=== PATIENT | female | born 1980 | race American Indian/Alaskan Native ===

== ENCOUNTER 2019-10-20 17:36 | Emergency (ER) | payer MEDICAID ==
[2019-10-20 17:47] VITALS: BP 139/76
== END 2019-10-20 21:45 | disposition left against medical advice (07) ==
LOC: ED 17:36
DX: N93.9 Abnormal uterine and vaginal bleeding, unspecified (principal); Z53.21 Procedure and treatment not carried out due to patient leaving prior to being seen by health care provider

== ENCOUNTER 2020-11-02 20:12 | Emergency (ER) | payer MEDICAID | END 2020-11-02 20:30 | disposition left against medical advice (07) | LOC: ED 20:12 | DX: Z00.8 Encounter for other general examination (principal); Z53.21 Procedure and treatment not carried out due to patient leaving prior to being seen by health care provider ==

== ENCOUNTER 2021-04-12 19:41 | Emergency (ER) | payer MEDICAID ==
[2021-04-12] MEDS ORDERED: ACETAMINOPHEN 500 MG TAB PO ONE (21:39)
[2021-04-12] MEDS ORDERED: ASPIRIN 325 MG TAB PO ONE (21:39)
[2021-04-12] MEDS ORDERED: diazePAM 5 MG TAB PO ONE (21:39)
[2021-04-12 22:08] LABS: Basophils % (Auto) 0.3 % (0.0-1.8); Eosinophils % (Auto) 0.1 % (0.0-4.3); Hematocrit 35.4 % (30.3-42.9); Hemoglobin 11.5 gm/dl (10.1-14.3); Lymphocytes # (Auto) 2.4 K/mm3 (1.2-5.4); Lymphocytes % (Auto) 31.5 % (13.4-35.0); Mean Corpuscular HGB Conc 33 % (30-34); Mean Corpuscular Volume 92 fl (79-97); Monocytes # (Auto) 0.5 K/mm3 (0.0-0.8); Platelet Count 367 K/mm3 (140-440); Red Blood Count 3.83 M/mm3 (3.65-5.03); Red Cell Distribution Width 13.8 % (13.2-15.2)
[2021-04-12 22:38] LABS: Alanine Aminotransferase 22 units/L (7-56); Albumin 4.4 g/dL (3.9-5); BUN/Creatinine Ratio 13; Blood Urea Nitrogen 10 mg/dL (7-17); Calcium 9.3 mg/dL (8.4-10.2); Hemolysis Index 27
--- NOTE | 2021-04-12 22:44 | XRay Report ---
CHEST 1 VIEW INDICATION / CLINICAL INFORMATION: chest pain. COMPARISON: None available. FINDINGS: SUPPORT DEVICES: None. HEART / MEDIASTINUM: No significant abnormality. LUNGS / PLEURA: No significant pulmonary or pleural abnormality. No pneumothorax. ADDITIONAL FINDINGS: No significant additional findings. IMPRESSION: 1. No acute findings. Signer Name: Sherri Reno MD Signed: 04/12/2021 10:40 PM Workstation Name: [id number]
--- NOTE | 2021-04-12 23:21 | Emergency Department Report ---
ED General Adult HPI - General Chief complaint: Anxiety Stated complaint: anxiety PUI?: No Source: EMS Mode of arrival: Ambulatory Limitations: No Limitations - History of Present Illness Initial comments: Patient is a 40-year-old -[place]ian female with a history of anxiety and depression who presented to the ED with complaint of acute onset persistent left-sided chest pain that has been constant and persistent for the last 3 days, worse in the last 8 hours. Patient also complains of shortness of breath but attributes this to her chronic anxiety that she previously took Ativan for. Patient states that she has an appointment with her primary care physician in 3 days and wanted to be evaluated because of persistent left-sided chest pain. Patient also states that her job also entails heavy lifting and she was unsure as to whether the pain in her chest may be attributed to the heavy lifting at work. Patient denies dizziness, syncope, abdominal pain, palpitations, nausea and vomiting, neck pain, traumatic injury, fall, headache, change in vision, diaphoresis, fever and chills or back pain. -: Sudden, days(s) (2) Location: chest Radiation: non-radiation Severity scale (0 -10): 4 Quality: aching, sharp Consistency: constant Improves with: none Worsens with: movement Associated Symptoms: denies other symptoms, chest pain (Left-sided chest pain), other (Anxiety). denies: confusion, cough, diaphoresis, fever/chills, headaches, loss of appetite, malaise, nausea/vomiting, seizure, shortness of breath, syncope, weakness Treatments Prior to Arrival: none - Related Data Previous Rx's Medication Instructions Recorded Last Taken Type Ciprofloxacin HCl [Ciprofloxacin 500 mg PO Q12H #20 tab 05/30/16 Unknown Rx TAB] HYDROcodone/APAP 5-325 [[place] 1 each PO Q6HR PRN #20 tablet 05/30/16 Unknown Rx 5/325] metroNIDAZOLE [Flagyl] 500 mg PO Q8HR #30 tablet 05/30/16 Unknown Rx Cyclobenzaprine [Flexeril] 10 mg PO TID PRN #15 tablet 04/12/21 Unknown Rx Naproxen 500 mg PO Q12H PRN #30 tablet 04/12/21 Unknown Rx hydrOXYzine PAMOATE [Vistaril] 50 mg PO Q12HR PRN #60 capsule 04/12/21 Unknown Rx Allergies Allergy/AdvReac Type Severity Reaction Status Date / Time No Known Allergies Allergy Verified 10/20/19 17:37 ED Review of Systems ROS: Stated complaint: anxiety Other details as noted in HPI Constitutional: denies: chills, fever Eyes: denies: eye pain, eye discharge, vision change ENT: denies: ear pain, throat pain Respiratory: denies: cough, shortness of breath, wheezing Cardiovascular: chest pain (Left-sided chest pain). denies: palpitations Endocrine: no symptoms reported Gastrointestinal: denies: abdominal pain, nausea, vomiting, diarrhea Genitourinary: denies: urgency, dysuria, discharge Musculoskeletal: denies: back pain, joint swelling, arthralgia Skin: denies: rash, lesions Neurological: denies: headache, weakness, paresthesias Psychiatric: anxiety. denies: depression, auditory hallucinations, visual hallucinations, suicidal thoughts Hematological/Lymphatic: denies: easy bleeding, easy bruising ED Past Medical Hx - Past Medical History Hx Hypertension: No Hx Congestive Heart Failure: No Hx Diabetes: No Hx Deep Vein Thrombosis: No Hx Renal Disease: No Hx Sickle Cell Disease: No Hx Seizures: No Hx Psychiatric Treatment: Yes (Anxiety and depression) Hx Asthma: No Hx COPD: No Hx HIV: No - Social History Smoking Status: Never Smoker Substance Use Type: None - Medications Home Medications: Home Medications Medication Instructions Recorded Confirmed Last Taken Type Ciprofloxacin HCl [Ciprofloxacin 500 mg PO Q12H #20 tab 05/30/16 Unknown Rx TAB] HYDROcodone/APAP 5-325 [[place] 1 each PO Q6HR PRN #20 tablet 05/30/16 Unknown Rx 5/325] metroNIDAZOLE [Flagyl] 500 mg PO Q8HR #30 tablet 05/30/16 Unknown Rx Cyclobenzaprine [Flexeril] 10 mg PO TID PRN #15 tablet 04/12/21 Unknown Rx Naproxen 500 mg PO Q12H PRN #30 tablet 04/12/21 Unknown Rx hydrOXYzine PAMOATE [Vistaril] 50 mg PO Q12HR PRN #60 capsule 04/12/21 Unknown Rx ED Physical Exam - General Limitations: No Limitations General appearance: alert, in no apparent distress - Head Head exam: Present: atraumatic, normocephalic, normal inspection - Eye Eye exam: Present: normal appearance, PERRL, EOMI - ENT ENT exam: Present: normal exam, normal orophraynx, mucous membranes moist, TM's normal bilaterally, normal external ear exam - Neck Neck exam: Present: normal inspection, full ROM - Respiratory Respiratory exam: Present: normal lung sounds bilaterally, chest wall tenderness (Palpable reproducible left-sided chest wall tenderness). Absent: respiratory distress, wheezes, rales, rhonchi, accessory muscle use, decreased breath sounds, prolonged expiratory - Cardiovascular Cardiovascular Exam: Present: regular rate, normal rhythm, normal heart sounds. Absent: systolic murmur, diastolic murmur, rubs, gallop - GI/Abdominal GI/Abdominal exam: Present: soft, normal bowel sounds. Absent: tenderness, guarding, rebound, hyperactive bowel sounds, hypoactive bowel sounds, mass - Extremities Exam Extremities exam: Present: normal inspection, full ROM, normal capillary refill - Back Exam Back exam: Present: normal inspection, full ROM. Absent: tenderness, CVA tenderness (R), CVA tenderness (L), muscle spasm, vertebral tenderness - Neurological Exam Neurological exam: Present: alert, oriented X3, CN II-XII intact, normal gait, reflexes normal - Psychiatric Psychiatric exam: Present: depressed, anxious, flat affect. Absent: homicidal ideation, suicidal ideation - Skin Skin exam: Present: warm, dry, intact, normal color. Absent: rash ED Course Vital Signs 04/12/21 19:42 Temperature 98.9 F Pulse Rate 88 Respiratory 20 Rate Blood Pressure 154/92 [Right] O2 Sat by Pulse 99 Oximetry ED Medical Decision Making - Lab Data Result diagrams: 04/12/21 21:43 04/12/21 21:43 - Radiology Data Radiology results: report reviewed, image reviewed [address] [address] XRay Report Signed Patient: VITO OLIVER MR#: [id number] : 1980 Acct:[id number] Age/Sex: 40 / F ADM Date: 04/12/21 Loc: ED Attending Dr: Ordering Physician: JIMMY WHITE Date of Service: 04/12/21 Procedure(s): XR chest 1V ap Accession Number(s): [id number] cc: JIMMY WHITE Fluoro Time In Minutes: CHEST 1 VIEW INDICATION / CLINICAL INFORMATION: chest pain. COMPARISON: None available. FINDINGS: SUPPORT DEVICES: None. HEART / MEDIASTINUM: No significant abnormality. LUNGS / PLEURA: No significant pulmonary or pleural abnormality. No pneumothorax. ADDITIONAL FINDINGS: No significant additional findings. IMPRESSION: 1. No acute findings. Signer Name: Sherri Reno MD Signed: 04/12/2021 10:40 PM Workstation Name: [id number] Transcribed By: JR Dictated By: Sherri Reno MD Electronically Authenticated By: Sherri Reno MD Signed Date/Time: 04/12/212239 DD/ 38 TD/TT: - Medical Decision Making This is a 40-year-old -[place]ian female with a history of anxiety and depression who presented to the ED with complaint of acute onset persistent left-sided chest pain that has been constant and persistent for the last 3 days, worse in the last 8 hours. Patient also complains of shortness of breath but attributes this to her chronic anxiety that she previously took Ativan for. Patient states that she has an appointment with her primary care physician in 3 days and wanted to be evaluated because of persistent left-sided chest pain. Patient also states that her job also entails heavy lifting and she was unsure as to whether the pain in her chest may be attributed to the heavy lifting at work. In the ED, patient is alert and oriented x3 and is not in distress. Patient however appears to be anxious due to her chronic anxiety and depression after losing her 14-year-old son about 4 months ago. Chest x-ray showed no acute cardiopulmonary abnormalities or pneumonitis. Patient was treated in the ED for pain and also treated for anxiety in the ED. Lab test results were reviewed and are all nonactionable including troponin levels. Patient's heart score is 0 and patient is PERC negative per Wells criteria. Patient was therefore discharged home on pain medications and anxiety medications and advised to follow-up with her primary care physician as previously scheduled in 3 days time. Patient was otherwise advised return to the ED immediately if symptoms get worse. - Differential Diagnosis ACS; anxiety; pneumonia; muscle strain; costochondritis; PE Critical care attestation.: If time is entered above; I have spent that time in minutes in the direct care of this critically ill patient, excluding procedure time. ED Disposition Clinical Impression: Acute nonspecific chest pain with low risk of coronary artery disease, Anxiety associated with depression, Anxiety as acute reaction to exceptional stress, Acute costochondritis Disposition: 01 HOME / SELF CARE / HOMELESS Is pt being admited?: No Does the pt Need Aspirin: No Condition: Stable Instructions: Chest Pain (ED), Costochondritis, [id number], Nonspecific Chest Pain, Adult, [id number], Generalized Anxiety Disorder, Adult, Chest Wall Pain, [id number] Additional Instructions: All lab test results were reviewed and are all nonactionable. Chest x-ray showe d no acute cardiopulmonary abnormalities or pneumonitis. Therefore your symptoms are likely due to anxiety, or heavy lifting at work causing the chest wall pain. Therefore take medication with food, drink plenty of fluids and follow-up with your primary care physician in 7 to 10 days for reevaluation. Return to the ED immediately if symptoms get worse. Prescriptions: Cyclobenzaprine [Flexeril] 10 mg PO TID PRN #15 tablet PRN Reason: Muscle Spasm Naproxen 500 mg PO Q12H PRN #30 tablet PRN Reason: Pain , Severe (7-10) hydrOXYzine PAMOATE [Vistaril] 50 mg PO Q12HR PRN #60 capsule PRN Reason: Anxiety Referrals: [facility] [Provider Group] - 7-10 days Forms: Work/School Release Form(ED) Time of Disposition: 23:23 Print Language: PORTUGUESE
[2021-04-13 00:45] VITALS: BP 142/85
--- NOTE | 2021-04-13 12:17 | Electrocardiograph Report ---
[facility] Test Date: 2021-04-12 Test Time: 19:57:21 Pat Name: VITO OLIVER Department: Room: Gender: F Environmental Scientist: : 1980 Requested By: ACE PEREZ Order Number: [id number] Reading MD: Will Lyle Measurements Intervals [place] Rate: 74 P: 0 MI: 67 QRS: 25 QRSD: 86 T: 8 QT: 377 QTc: 418 Interpretive Statements Sinus rhythm No previous ECG available for comparison Electronically Signed On 04-13-2021 12:16:55 EST by Will Lyle
== END 2021-04-13 00:25 | disposition home or self-care (01) ==
LOC: ED 19:41
DX: M94.0 Chondrocostal junction syndrome [Tietze] (principal); F41.9 Anxiety disorder, unspecified; F32.9 Major depressive disorder, single episode, unspecified; Z79.899 Other long term (current) drug therapy
CPT/HCPCS: 36415; 71045; 80053; 84443; 84484; 84703; 85025; 93005; 99284

== ENCOUNTER 2021-05-20 04:52 | Emergency (ER) | payer MEDICAID ==
--- NOTE | 2021-05-20 05:31 | Event Note ---
ED Screening Note ED Screening Note: Patient presents for left-sided chest pain that exacerbated yesterday states that she has been having difficulty sleeping Patient states that she has been having intermittent chest pain since losing her son in January Reports that her doctor started her on lisinopril for her blood pressure and started her on lorazepam for anxiety She states that she does not like how the lorazepam makes her feel She reports that she also started a workers' compensation claims examiner and had an echocardiogram and is awaiting her results She states that her workers' compensation claims examiner wrote her prescription for bisoprolol but she has not yet started taking it She has not tried any [id number] sleep aids such as melatonin, ZzzQuil, Unisom No allergies to medications This initial assessment/diagnostic orders/clinical plan/treatment(s) is/are subject to change based on patients health status, clinical progression and re- assessment by fellow clinical providers in the ED. Further treatment and workup at subsequent clinical providers discretion. Patient/guardian urged not to elope from the ED as their condition may be serious if not clinically assessed and managed. Initial orders include: Labs, EKG, x-ray
[2021-05-20 06:10] LABS: Basophils % (Auto) 0.3 % (0.0-1.8); Eosinophils % (Auto) 0.5 % (0.0-4.3); Hematocrit 33.3 % (30.3-42.9); Hemoglobin 11.1 gm/dl (10.1-14.3); Lymphocytes # (Auto) 1.8 K/mm3 (1.2-5.4); Lymphocytes % (Auto) 33.3 % (13.4-35.0); Mean Corpuscular HGB Conc 33 % (30-34); Mean Corpuscular Volume 91 fl (79-97); Monocytes # (Auto) 0.5 K/mm3 (0.0-0.8); Monocytes % (Auto) 8.2 % (0.0-7.3); Platelet Count 304 K/mm3 (140-440); Red Blood Count 3.65 M/mm3 (3.65-5.03); Red Cell Distribution Width 13.7 % (13.2-15.2)
--- NOTE | 2021-05-20 06:19 | Emergency Department Report ---
ED General Adult HPI - General Chief complaint: Chest Pain Stated complaint: CHEST PAIN Time Seen by Provider: 05/20/21 06:01 Source: patient Mode of arrival: Ambulatory Limitations: No Limitations - History of Present Illness Initial comments: Patient presents secondary to chest pain. For months she has been having problems with intermittent left chest pain. This is described as an aching sensation in the left chest and under the left breast. The symptoms do not radiate or migrate. She states that this seems to be worse when her anxiety is up. She lost her son and she started having chest pain subsequent to that. She has been seen by her regular doctor. They have started her on anxiety medicine which does not seem to help. She has been seen by cardiology. Echocardiogram was completed, but the patient states that she does not have that result. Regardless, she does not have any associated symptoms with this. The symptoms do not seem to be exertional, positional, or pleuritic. She came in today because of the discomfort. She has noticed that sometimes she has the symptoms even when she does not "feel anxious." - Related Data Previous Rx's Medication Instructions Recorded Last Taken Type Ciprofloxacin HCl [Ciprofloxacin 500 mg PO Q12H #20 tab 05/30/16 Unknown Rx TAB] HYDROcodone/APAP 5-325 [[place] 1 each PO Q6HR PRN #20 tablet 05/30/16 Unknown Rx 5/325] metroNIDAZOLE [Flagyl] 500 mg PO Q8HR #30 tablet 05/30/16 Unknown Rx Cyclobenzaprine [Flexeril] 10 mg PO TID PRN #15 tablet 04/12/21 Unknown Rx Naproxen 500 mg PO Q12H PRN #30 tablet 04/12/21 Unknown Rx hydrOXYzine PAMOATE [Vistaril] 50 mg PO Q12HR PRN #60 capsule 04/12/21 Unknown Rx Allergies Allergy/AdvReac Type Severity Reaction Status Date / Time No Known Allergies Allergy Verified 10/20/19 17:37 ED Review of Systems ROS: Stated complaint: CHEST PAIN Other details as noted in HPI Comment: All other systems reviewed and negative Constitutional: denies: fever Eyes: denies: vision change ENT: denies: throat pain Respiratory: denies: cough Cardiovascular: as per HPI Endocrine: denies: unexplained weight loss Gastrointestinal: denies: abdominal pain Genitourinary: denies: dysuria Musculoskeletal: denies: back pain Skin: denies: rash Neurological: denies: headache Psychiatric: as per HPI Hematological/Lymphatic: denies: easy bruising ED Past Medical Hx - Past Medical History Previous Medical History?: Yes Hx Hypertension: No Hx Congestive Heart Failure: No Hx Diabetes: No Hx Deep Vein Thrombosis: No Hx Renal Disease: No Hx Sickle Cell Disease: No Hx Seizures: No Hx Psychiatric Treatment: Yes (Anxiety and depression) Hx Asthma: No Hx COPD: No Hx HIV: No - Surgical History Past Surgical History?: No - Family History Family history: other (Negative for heart disease) - Social History Smoking Status: Never Smoker Substance Use Type: None - Medications Home Medications: Home Medications Medication Instructions Recorded Confirmed Last Taken Type Ciprofloxacin HCl [Ciprofloxacin 500 mg PO Q12H #20 tab 05/30/16 Unknown Rx TAB] HYDROcodone/APAP 5-325 [[place] 1 each PO Q6HR PRN #20 tablet 05/30/16 Unknown Rx 5/325] metroNIDAZOLE [Flagyl] 500 mg PO Q8HR #30 tablet 05/30/16 Unknown Rx Cyclobenzaprine [Flexeril] 10 mg PO TID PRN #15 tablet 04/12/21 Unknown Rx Naproxen 500 mg PO Q12H PRN #30 tablet 04/12/21 Unknown Rx hydrOXYzine PAMOATE [Vistaril] 50 mg PO Q12HR PRN #60 capsule 04/12/21 Unknown Rx ED Physical Exam - General Limitations: No Limitations, Other (Pulse ox noted and normal) General appearance: alert, in no apparent distress - Head Head exam: Present: atraumatic, normocephalic, normal inspection - Eye Eye exam: Present: normal appearance. Absent: EOMI - ENT ENT exam: Present: normal orophraynx, normal external ear exam - Neck Neck exam: Present: normal inspection. Absent: meningismus - Respiratory Respiratory exam: Present: normal lung sounds bilaterally. Absent: respiratory distress - Cardiovascular Cardiovascular Exam: Present: regular rate, normal rhythm - GI/Abdominal GI/Abdominal exam: Present: soft. Absent: distended, tenderness - Extremities Exam Extremities exam: Present: normal capillary refill. Absent: calf tenderness - Back Exam Back exam: Absent: CVA tenderness (R), CVA tenderness (L) - Neurological Exam Neurological exam: Present: alert, oriented X3, CN II-XII intact, normal gait. Absent: motor sensory deficit - Psychiatric Psychiatric exam: Present: normal affect, normal mood - Skin Skin exam: Present: warm, dry ED Course - Reevaluation(s) Reevaluation #1: 05/20/21 06:17 Labs are currently pending. Old records reviewed. Reevaluation #2: 05/20/21 07:08 Labs were noted. Patient was discharged. ED Medical Decision Making - Lab Data Result diagrams: 05/20/21 05:45 05/20/21 05:45 - EKG Data -: EKG Interpreted by Me - EKG Data 05/20/21 07:08 0640-EKG shows normal sinus rhythm at 67. Intervals are normal including a QRS of 82 and a QT corrected of 445. Patient has no ST elevation to suggest STEMI. There is no ST depression suggestive of ischemia. There is T wave flattening in lead III and aVL. There is no change from prior EKG. - Medical Decision Making Patient presents secondary to chest pain that has been ongoing. She has had a cardiac work-up that is grossly unremarkable. I am not concerned for STEMI or ACS based on what she has complained of. She does not have any clinical evidence of pneumonia or pneumothorax. She does not have a pulse deficit that would suggest aortic dissection. I suspect that this is more of a grief type reaction since it started after losing her son. She can follow-up with an outpatient primary care physician. Critical Care Time: No Critical care attestation.: If time is entered above; I have spent that time in minutes in the direct care of this critically ill patient, excluding procedure time. ED Disposition Clinical Impression: Left-sided chest pain Disposition: 01 HOME / SELF CARE / HOMELESS Is pt being admited?: No Condition: Stable Instructions: Nonspecific Chest Pain, Adult Additional Instructions: Drink plenty water. Follow-up with your regular doctor for ongoing treatment and management. Continue home medications. Referrals: PRIMARY CAREMD [Referring] - 3-5 Days DARLYN PAZ MD [Staff Physician] - 3-5 Days
[2021-05-20 06:22] LABS: Alanine Aminotransferase 12 units/L (7-56); Albumin 4.2 g/dL (3.9-5); BUN/Creatinine Ratio 15; Blood Urea Nitrogen 12 mg/dL (7-17); Calcium 9.1 mg/dL (8.4-10.2); Hemolysis Index 2
[2021-05-20 08:24] VITALS: BP 141/69
--- NOTE | 2021-05-20 08:38 | XRay Report ---
CHEST 2 VIEWS INDICATION: Chest Pain. COMPARISON: 04/12/2021 FINDINGS: Support devices: None. Heart: Within normal limits. Lungs/pleura: No acute air space or interstitial disease. No pneumothorax. Additional findings: None. IMPRESSION: No acute findings. No change since 04/12/2021. Signer Name: Bruno Clifford Jr, MD Signed: 05/20/2021 8:33 AM Workstation Name: [id number]
--- NOTE | 2021-05-20 10:56 | Electrocardiograph Report ---
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
== END 2021-05-20 08:24 | disposition home or self-care (01) ==
LOC: ED 04:52
DX: R07.89 Other chest pain (principal); F41.9 Anxiety disorder, unspecified; F32.9 Major depressive disorder, single episode, unspecified; Z79.899 Other long term (current) drug therapy
CPT/HCPCS: 36415; 71046; 80053; 84484; 84703; 85025; 93005; 93010; 99283

== ENCOUNTER 2021-10-06 21:01 | Emergency (ER) | payer MEDICAID ==
[2021-10-06] MEDS ORDERED: IBUPROFEN 600 MG TAB PO ONE (21:08)
[2021-10-07] MEDS ORDERED: SODIUM CHLORIDE 0.9% 1000 ML IV SOLN IV ONE (04:26)
[2021-10-07] MEDS ORDERED: cefTRIAXone/NS 2 GM/100 ML 2 GM/100 ML BAG IV ONE (04:26)
--- NOTE | 2021-10-07 04:32 | Emergency Department Report ---
ED General Adult HPI - General Chief complaint: Urogenital-Female Stated complaint: CHEST PAIN/PAINFUL URINATION Source: patient Mode of arrival: Ambulatory Limitations: No Limitations - History of Present Illness Severity scale (0 -10): 2 - Related Data Previous Rx's Medication Instructions Recorded Last Taken Type Ciprofloxacin HCl [Ciprofloxacin 500 mg PO Q12H #20 tab 05/30/16 Unknown Rx TAB] HYDROcodone/APAP 5-325 [[place] 1 each PO Q6HR PRN #20 tablet 05/30/16 Unknown Rx 5/325] metroNIDAZOLE [Flagyl] 500 mg PO Q8HR #30 tablet 05/30/16 Unknown Rx Cyclobenzaprine [Flexeril] 10 mg PO TID PRN #15 tablet 04/12/21 Unknown Rx Naproxen 500 mg PO Q12H PRN #30 tablet 04/12/21 Unknown Rx hydrOXYzine PAMOATE [Vistaril] 50 mg PO Q12HR PRN #60 capsule 04/12/21 Unknown Rx Allergies Allergy/AdvReac Type Severity Reaction Status Date / Time No Known Allergies Allergy Verified 10/20/19 17:37 ED Review of Systems ROS: Stated complaint: CHEST PAIN/PAINFUL URINATION Other details as noted in HPI Comment: All other systems reviewed and negative ED Past Medical Hx - Past Medical History Hx Hypertension: No Hx Congestive Heart Failure: No Hx Diabetes: No Hx Deep Vein Thrombosis: No Hx Renal Disease: No Hx Sickle Cell Disease: No Hx Seizures: No Hx Psychiatric Treatment: Yes (Anxiety and depression) Hx Asthma: No Hx COPD: No Hx HIV: No - Social History Smoking Status: Never Smoker Substance Use Type: None - Medications Home Medications: Home Medications Medication Instructions Recorded Confirmed Last Taken Type Ciprofloxacin HCl [Ciprofloxacin 500 mg PO Q12H #20 tab 05/30/16 Unknown Rx TAB] HYDROcodone/APAP 5-325 [[place] 1 each PO Q6HR PRN #20 tablet 05/30/16 Unknown Rx 5/325] metroNIDAZOLE [Flagyl] 500 mg PO Q8HR #30 tablet 05/30/16 Unknown Rx Cyclobenzaprine [Flexeril] 10 mg PO TID PRN #15 tablet 04/12/21 Unknown Rx Naproxen 500 mg PO Q12H PRN #30 tablet 04/12/21 Unknown Rx hydrOXYzine PAMOATE [Vistaril] 50 mg PO Q12HR PRN #60 capsule 04/12/21 Unknown Rx ED Physical Exam - General Limitations: No Limitations General appearance: alert, in no apparent distress - Head Head exam: Present: atraumatic, normocephalic - Eye Eye exam: Present: normal appearance - ENT ENT exam: Present: mucous membranes moist - Neck Neck exam: Present: normal inspection - Respiratory Respiratory exam: Present: normal lung sounds bilaterally. Absent: respiratory distress - Cardiovascular Cardiovascular Exam: Present: regular rate, normal rhythm. Absent: systolic murmur, diastolic murmur, rubs, gallop - GI/Abdominal GI/Abdominal exam: Present: soft, normal bowel sounds - Extremities Exam Extremities exam: Present: normal inspection - Back Exam Back exam: Present: normal inspection - Neurological Exam Neurological exam: Present: alert, oriented X3 - Psychiatric Psychiatric exam: Present: normal affect, normal mood - Skin Skin exam: Present: warm, dry, intact, normal color. Absent: rash ED Course Vital Signs 10/06/21 21:05 Temperature 102.7 F H Pulse Rate 109 H Respiratory 18 Rate Blood Pressure 158/82 O2 Sat by Pulse 99 Oximetry Critical care attestation.: If time is entered above; I have spent that time in minutes in the direct care of this critically ill patient, excluding procedure time. ED Disposition Condition: Stable
[2021-10-07 06:29] LABS: Basophils % (Auto) 0.2 % (0.0-1.8); Eosinophils % (Auto) 0.1 % (0.0-4.3); Hematocrit 32.9 % (30.3-42.9); Hemoglobin 10.9 gm/dl (10.1-14.3); Lymphocytes # (Auto) 2.2 K/mm3 (1.2-5.4); Lymphocytes % (Auto) 21.4 % (13.4-35.0); Mean Corpuscular HGB Conc 33 % (30-34); Mean Corpuscular Volume 92 fl (79-97); Monocytes # (Auto) 1.5 K/mm3 (0.0-0.8); Monocytes % (Auto) 14.1 % (0.0-7.3); Platelet Count 272 K/mm3 (140-440); Red Cell Distribution Width 15.4 % (13.2-15.2)
[2021-10-07 06:53] LABS: Alanine Aminotransferase 10 units/L (7-56); Albumin 4.2 g/dL (3.9-5); BUN/Creatinine Ratio 12; Blood Urea Nitrogen 12 mg/dL (7-17); Hemolysis Index 2
[2021-10-07 07:59] VITALS: BP 136/86
== END 2021-10-07 09:28 | disposition home or self-care (01) ==
LOC: ED 21:01
DX: R07.9 Chest pain, unspecified (principal); R51.9 Headache, unspecified
CPT/HCPCS: 36415; 80053; 82140; 85025; 87040; 96365; 99283; J0696; J7030